=== PATIENT | female | born 1970 | race Caucasian/White ===

== ENCOUNTER → 2023-12-10 | Day surgery (SDC) | payer OTHER ==
[~2023-12-10] MED LIST: ADDERALL 20 MG20 MG PO; AUGMENTIN 875-1 EACH PO; B12 ACTIVE1000 MCG; BIOTIN1 MG; CLARITIN10 MG PO; D3-5000125 MCG; DEXAMETHASONE SOD PHOS 10 MG/1 ML VIAL ONE; FLONASE ALLERG9.9 ML INH; FOLIC ACID1 MG PO; IBUPROFEN400 MG PO; LACTATED RINGER'S 1,000 ML ONE; MELATONIN3 MG PO; OFLOXACIN 0.3% (OTIC SOL) 5 ML BTL ONE; PHENERGAN; PHENERGAN25 MG/1 ML PO; TYLENOL # 31 EA PO; VALTREX500 MG PO
[2023-12-10 09:35] VITALS: BP 105/65; PULSE 72; RESP 16; O2SAT 98
== END | disposition home or self-care (01) ==
LOC: OR 05:49
PROVIDERS: ATTEND Otolaryngology Otolaryngology/Facial Plastic Surgery
DX: H91.22 Sudden idiopathic hearing loss, left ear (principal); G47.33 Obstructive sleep apnea (adult) (pediatric); E66.01 Morbid (severe) obesity due to excess calories; F90.9 Attention-deficit hyperactivity disorder, unspecified type; Z79.899 Other long term (current) drug therapy; Z87.891 Personal history of nicotine dependence
CPT/HCPCS: 69399; 69436; 71046; 93005; J1100; J7121

== ENCOUNTER → 2024-08-18 | Day surgery (SDC) | payer OTHER ==
[~2024-08-18] MED LIST changes: +DEXAMETHASONE SOD PHOS INJ 4 MG/ML SDV ONE; +EPINEPHRINE HCL 1:1000 1ML 1 MG/ML AMP ONE; +FENTANYL CITRATE/PF 100MCG/2 ML INJ ONE; -LACTATED RINGER'S 1,000 ML ONE; +LIDOCAINE HCL 2% LOCAL INJ 5 ML SDV VIAL INJ ONE; +MAGNESIUM OXID400 MG PO; +MIDAZOLAM HCL 2 MG/2 ML VIAL ONE; +MONTELUKAST SOD10 MG PO; +ONDANSETRON HCL INJ 2MG/ML 2ML 2 MG/ML VIAL ONE; +PHENYLEPHRINE HCL 1% 10 MG/ML VIAL ONE; +PROPOFOL IV EMULSION 10 MG/ML 20 ML VIAL ONE; +SEVOFLURANE INHAL SOLN 250 ML PEN BTL ONE
[2024-08-18] MEDS: LACTATED RINGER'S 1,000 ML ONE (07:00)
[2024-08-18 10:00] VITALS: BP 114/67; PULSE 65; RESP 15; O2SAT 97
== END | disposition home or self-care (01) ==
LOC: OR 06:34
PROVIDERS: ATTEND Otolaryngology Otolaryngology/Facial Plastic Surgery
DX: H91.22 Sudden idiopathic hearing loss, left ear (principal); G47.33 Obstructive sleep apnea (adult) (pediatric); J45.909 Unspecified asthma, uncomplicated; F90.9 Attention-deficit hyperactivity disorder, unspecified type; E66.9 Obesity, unspecified; Z79.899 Other long term (current) drug therapy; Z87.891 Personal history of nicotine dependence
CPT/HCPCS: 69399; 69436; J0171; J1100 ×2; J2003; J2250; J2371; J2405; J2704; J3010; J7121